=== PATIENT | male | born 2000 ===

== ENCOUNTER 2021-05-06 16:38 | Outpatient (REF) | payer MEDICAID, SELFPAY ==
[2021-05-06 19:38] LABS: Abs Immature Grans 0.02 10^3/uL (0.0-0.06); Absolute Basophil Count 0.04 10^3/uL (0.0-0.2); Absolute Eosinophil Count 0.07 10^3/uL (0.0-0.7); Absolute Monocyte Count 0.93 10^3/uL (0.1-0.8); Basophils % 0.5; Eosinophils % 0.8; HCT 49.4 % (40.0-50.0); HGB 16.5 g/dL (13.5-17.5); Immature Grans % 0.2; Lymphocytes % 26.9; MCH 28.9 pg (27.0-33.0); MCHC 33.4 % (32.0-36.0); MCV 86.7 fL (80-95); MPV 11.3 fL (8.0-11.0); Monocytes % 10.9; Neutrophils % 60.7; Nucleated RBC 0 %; Platelet Count 268 10^3/uL (130-400); RDW 11.9 % (11.8-14.1); RDW-SD 38.1 fL; WBC 8.56 10^3/uL (4.4-10.8)
[2021-05-06 20:09] LABS: TSH 1.29 uIU/mL (0.36-3.74)
[2021-05-06 20:22] LABS: T4 9.1 ug/mL (4.7-13.3)
[2021-05-08 11:28] LABS: IgA 106 mg/dL (85-499); Interpretation (See Note); Tissue Transglutaminase IgA <1.2 U/mL (<4.0)
== END 2021-05-06 16:39 | disposition home or self-care (01) ==
LOC: NCHCN 16:38
PROVIDERS: Visit Provider Nurse Practitioner Family
DX: R19.7 Diarrhea, unspecified (principal)
CPT/HCPCS: 82784; 83516; 84436; 84443; 85025

== ENCOUNTER 2023-10-04 18:31 | Outpatient (REF) | payer SELFPAY ==
[2023-10-04 20:36] LABS: Bilirubin Negative (Negative); Blood Small (Negative); Clarity Clear (Clear); Glucose Negative (Negative); Ketones 15 mg/dL (Negative); Leukocyte Esterase Negative (Negative); Nitrite Negative (Negative); Specific Gravity 1.025 (1.005-1.025); Urobilinogen 0.2 mg/dL (Up to 0.2); pH 5.5 (5-8)
[2023-10-04 21:06] LABS: Bacteria Negative HPF (Negative); Epithelial Cells Negative HPF (Negative); WBC Negative HPF (0-5)
[2023-10-04 21:07] LABS: C & S Indicated? No; Crystals Rare Calcium Oxalate HPF (Negative); Mucus Negative (Negative)
== END 2023-10-04 18:32 | disposition home or self-care (01) ==
LOC: NCHCN 18:31
PROVIDERS: Visit Provider Nurse Practitioner Family
DX: R10.9 Unspecified abdominal pain (principal)
CPT/HCPCS: 81003; 81015

== ENCOUNTER 2023-10-08 22:42 | Outpatient (REF) | payer SELFPAY ==
[2023-10-08 19:26] LABS: Bilirubin Negative (Negative); Blood Negative (Negative); Clarity Clear (Clear); Glucose Negative (Negative); Ketones Negative (Negative); Leukocyte Esterase Negative (Negative); Nitrite Negative (Negative); Specific Gravity 1.025 (1.005-1.025); Urobilinogen 0.2 mg/dL (Up to 0.2); pH 6.5 (5-8)
== END 2023-10-08 22:43 | disposition home or self-care (01) ==
LOC: NCHCN 22:42
PROVIDERS: Visit Provider Nurse Practitioner Family
DX: R31.29 Other microscopic hematuria (principal)
CPT/HCPCS: 81003